=== PATIENT | female | born 1990 | race Caucasian/White ===

== ENCOUNTER 2021-06-24 16:22 | Emergency (ER) | payer BC, OTHER ==
[2021-06-24] MEDS ORDERED: Sodium Chloride 0.9% 10 ML Syringe FLUSH PRN (16:39)
[2021-06-24 16:45] VITALS: BP 156/101; PULSE 95
--- NOTE | 2021-06-24 17:00 | EDM.PDOC ---
ED HPI GENERAL MEDICAL PROBLEM - General Chief Complaint: BEAD STRINGER Problem Stated Complaint: POSS MISCARRIAGE Time Seen by Provider: 06/24/21 16:38 Source of Information: Reports: Patient, RN Notes Reviewed History Limitations: Reports: No Limitations - History of Present Illness INITIAL COMMENTS - FREE TEXT/NARRATIVE: Patient is a 30-year-old female who presents to the ER for evaluation of her vaginal bleeding in . States she is a G2, P1, and she is about 7 weeks . Patient noticed this morning that she had some light vaginal spotting, and this has increased to red vaginal bleeding with a small clot-like material. States that she does not think it would have been enough to fill a maxi pad, but possibly a panty liner. States she is not dizzy or lightheaded or anything, she is not having any sort of abdominal cramping. Patient states she is getting anxious thinking about the possibilities of this, so she came to the ER for evaluation. Her BEAD STRINGER does reside in [place]. Patient denies any other sick-like symptoms, fever/chills, cough/shortness of breath, nausea/vomiting/diarrhea. Denying any urinary issues. - Related Data Allergies Allergy/AdvReac Type Severity Reaction Status Date / Time Penicillins Allergy Rash Verified 06/24/21 16:45 Home Meds: Home Meds Doxepin HCl [Doxepin] 10 mg PO BEDTIME 09/03/19 [History] FLUoxetine [PROzac] 10 mg PO DAILY 09/03/19 [History] No122/Iron/Folic Acid [ Multi Tablet] 1 each PO BEDTIME 09/03/19 [History] Past Medical History HEENT History: Reports: Impaired Vision Cardiovascular History: Reports: None Respiratory History: Reports: None Gastrointestinal History: Reports: GERD BEAD STRINGER History: Reports: Musculoskeletal History: Reports: Other (See Below) Other Musculoskeletal History: right acl reconstruction Neurological History: Reports: None Psychiatric History: Reports: Anxiety, Depression, Panic Attack Endocrine/Metabolic History: Reports: Obesity/BMI 30+ Oncologic (Cancer) History: Reports: Other (See Below) - Past Surgical History HEENT Surgical History: Reports: Adenoidectomy, LASIK, Oral Surgery, Tonsillectomy GI Surgical History: Reports: Appendectomy Musculoskeletal Surgical History: Reports: Arthroscopic Knee, Carpal Tunnel Social & Family History - Tobacco Use Tobacco Use Status *Q: Never Tobacco User - Caffeine Use Caffeine Use: Reports: None - Recreational Drug Use Recreational Drug Use: No ED ROS GENERAL - Review of Systems Review Of Systems: Comprehensive ROS is negative, except as noted in HPI. ED EXAM - Physical Exam Exam: See Below Exam Limited By: No Limitations General Appearance: Alert, WD/WN, No Apparent Distress Respiratory/Chest: No Respiratory Distress, Lungs Clear, Normal Breath Sounds, No Accessory Muscle Use, Chest Non-Tender Cardiovascular: Normal Peripheral Pulses, Regular Rate, Rhythm, No Edema GI/Abdominal Exam: Normal Bowel Sounds, Soft, No Distention, No Mass, Tender (low pelvic/ suprapic mild discomfort) Heart Tones: Not [place] Movement: Not Appreciated Extremities: Normal Inspection, Normal Capillary Refill Neurological: Alert, Oriented, Normal Cognition, No Motor/Sensory Deficits Psychiatric: Normal Affect, Normal Mood Skin Exam: Warm, Dry, Intact, Normal Color, No Rash Course - Vital Signs Last Recorded V/S: Last Vital Signs Temp 97.2 F 06/24/21 16:42 Pulse 95 06/24/21 16:42 Resp 16 06/24/21 16:42 BP 156/101 H 06/24/21 16:42 Pulse Ox 97 06/24/21 16:42 - Orders/Labs/Meds Orders: Active Orders 24 hr Category Date Time Status Peripheral IV Care [RC] . DIRECTED Care 06/24/21 16:39 Ordered OB Transvaginal [US] Stat Exams 06/24/21 16:39 Ordered PATIENT RETYPE [BBK] Routine Lab 06/24/21 16:54 Received Sodium Chloride 0.9% [Saline Flush] Med 06/24/21 16:39 Ordered 10 ml FLUSH ASDIRECTED PRN Peripheral IV Insertion Adult [OM.PC] Stat Oth 06/24/21 16:39 Ordered Medication Orders Sodium Chloride (Sodium Chloride 0.9% 10 Ml Syringe) 10 ml FLUSH ASDIRECTED PRN PRN Reason: Keep Vein Open Labs: Laboratory Tests 06/24/21 06/24/21 06/24/21 Range/Units 16:57 16:57 16:57 WBC 7.98 (3.98-10.04) K/mm3 RBC 4.26 (3.98-5.22) M/mm3 Hgb 13.0 (11.2-15.7) gm/dl Hct 39.7 (34.1-44.9) % MCV 93.2 (79.4-94.8) fl MCH 30.5 (25.6-32.2) pg MCHC 32.7 (32.2-35.5) g/dl RDW Std Deviation 43.7 (36.4-46.3) fL Plt Count 270 (182-369) K/mm3 MPV 9.7 (9.4-12.3) fl Neut % (Auto) 58.3 (34.0-71.1) % Lymph % (Auto) 29.3 (19.3-51.7) % [place] % (Auto) 10.3 (4.7-12.5) % Eos % (Auto) 1.5 (0.7-5.8) Baso % (Auto) 0.3 (0.1-1.2) % Neut # (Auto) 4.66 (1.56-6.13) K/mm3 Lymph # (Auto) 2.34 (1.18-3.74) K/mm3 [place] # (Auto) 0.82 H (0.24-0.36) K/mm3 Eos # (Auto) 0.12 (0.04-0.36) K/mm3 Baso # (Auto) 0.02 (0.01-0.08) K/mm3 HCG, Quant 1578.0 mIU/mL Blood Type O POSITIVE Meds: Medications Generic Name Dose Route Start Last Admin Trade Name Freq PRN Reason Stop Dose Admin Sodium Chloride 10 ml 06/24/21 16:39 Sodium Chloride 0.9% 10 Ml Syringe FLUSH ASDIRECTED PRN Keep Vein Open - Re-Assessments/Exams Free Text/Narrative Re-Assessment/Exam: 06/24/21 16:59 Patient presents to the ER for the evaluation of her early and vaginal bleeding, we will go ahead and get a transvaginal ultrasound, get some basic labs. 06/24/21 18:32 Hemoglobin is within normal limits, hCG quantitative level is 1578, ultrasound did demonstrate a candidate for gestational sac but no yolk sac or pole was identified at this time. This may be secondary to early however pseudogestational sac, abnormal or ectopic cannot be completely excluded at this time, close interval follow-up imaging is recommended. There is a simple appearing cystic structure within the right ovary and a small amount of free fluid within the pelvis that could be blood. Patient is going to follow-up with her BEAD STRINGER tomorrow for ongoing management, a copy of her ultrasound results through [facility] was given to the patient for ongoing management. Departure - Departure Time of Disposition: 18:33 Disposition: Home, Self-Care 01 Condition: Good Clinical Impression: Vaginal bleeding affecting early - Discharge Information *PRESCRIPTION DRUG MONITORING PROGRAM REVIEWED*: No *COPY OF PRESCRIPTION DRUG MONITORING REPORT IN PATIENT SUKHJINDER: No Instructions: Vaginal Bleeding During , First Trimester, [id number] Referrals: Alma Macdonald MD [Primary Care Provider] - Forms: ED Department Discharge Additional Instructions: You were evaluated in the ER today regarding your abdominal pain/vaginal bleeding in . You did have some labs drawn, and these were within normal limits, your hCG level was 1578, your blood type is O+. Your ultrasound demonstrated a possible gestational sac but no definite pole or yolk sac was identified. The gestational sac was measured at around 5 weeks 2 days gestation. This very well could be a very early finding versus other abnormalities. Close interval follow-up is recommended per radiology. The other portions of the ultrasound were reviewed, and are not found to be of concern at tonight's visit. Recommend that you do not lift anything heavier than a gallon of milk (5 lbs), do not engage in sexual activities, try to get as much pelvic rest as possible for the next few days. Please try not to exert yourself, rest and relax, and take it easy. If you are bleeding through more than 1-2 maxi pads every couple hours, this would be cause for concern to return to the ER for immediate management. Please follow up with your BEAD STRINGER tomorrow for ongoing reevaluation, for blood test/ultrasound imaging as directed by their discretion. Please return to the ED at any time if your symptoms change or worsen. Sepsis Event Note (ED) - Evaluation Sepsis Screening Result: No Definite Risk - Focused Exam Vital Signs: Vital Signs Temp Pulse Resp BP Pulse Ox 06/24/21 16:42 97.2 F 95 16 156/101 H 97 - My Orders Last 24 Hours: My Active Orders 06/24/21 16:39 Peripheral IV Care [RC] . DIRECTED OB Transvaginal [US] Stat Sodium Chloride 0.9% [Saline Flush] 10 ml FLUSH ASDIRECTED PRN Peripheral IV Insertion Adult [OM.PC] Stat 06/24/21 16:54 PATIENT RETYPE [BBK] Routine - Assessment/Plan Last 24 Hours: My Active Orders 06/24/21 16:39 Peripheral IV Care [RC] . DIRECTED OB Transvaginal [US] Stat Sodium Chloride 0.9% [Saline Flush] 10 ml FLUSH ASDIRECTED PRN Peripheral IV Insertion Adult [OM.PC] Stat 06/24/21 16:54 PATIENT RETYPE [BBK] Routine
--- NOTE | 2021-06-25 07:58 | US ---
First trimester obstetrical ultrasound: Multiple real-time images were obtained transvaginally. Comparison: No previous obstetrical ultrasound is available. Small cystic area is seen within the endometrial cavity. This has a mean sac diameter of 5 mm which correlates to 5 weeks 2 days. This is too early to confirm normal yolk sac or pole. Minimal free fluid is seen within the cul-de-sac. Maternal ovaries appear within normal limits. Impression: 1. Small sac within the endometrial cavity. Difficult to exclude very early . This could also represent a pseudo-gestational sac. Recommend follow-up study in 2 weeks to confirm normal . 2. Minimal free fluid within the pelvis which is believed to be physiologic. 3. No acute abnormality is appreciated. Diagnostic code #2 I agree with preliminary report from [facility], finalized on 06/24/21, 7:24 PM CDT, code 1
== END 2021-06-24 18:47 | disposition home or self-care (01) ==
LOC: JD.ED 16:22
DX: O20.9 Hemorrhage in early pregnancy, unspecified (principal); Z88.0 Allergy status to penicillin; Z3A.01 Less than 8 weeks gestation of pregnancy
CPT/HCPCS: 36415; 76817; 76817-26; 84702; 85025; 86900; 86901; 99284-25

== ENCOUNTER 2023-03-15 13:21 | Emergency (ER) | payer BC, OTHER ==
[2023-03-15 16:12] VITALS: BP 131/91; PULSE 68
== END 2023-03-15 16:10 | disposition home or self-care (01) ==
LOC: JD.ED 13:21
DX: S16.1XXA Strain of muscle, fascia and tendon at neck level, initial encounter (principal); S30.0XXA Contusion of lower back and pelvis, initial encounter; E66.9 Obesity, unspecified; Z68.33 Body mass index [BMI] 33.0-33.9, adult; Z88.0 Allergy status to penicillin; V80.010A Animal-rider injured by fall from or being thrown from horse in noncollision accident, initial encounter; Y93.52 Activity, horseback riding
CPT/HCPCS: 70450; 70450-26; 71045; 71045-26; 72125; 72125-26; 99283; 99284

== ENCOUNTER 2024-10-05 01:03 | Emergency (ER) | payer BC ==
[2024-10-05 01:39] LABS: BASOPHILS PERCENT AUTO 0.5 % (0.0-1.0); EOSINOPHILS ABSOLUTE AUTO 0.2 K/mm3 (0.0-0.4); EOSINOPHILS PERCENT AUTO 2.4 % (0.0-6.0); HEMOGLOBIN 13.9 gm/dl (12.0-16.0); IMMATURE GRAN ABSOLUTE AUTO 0.02 K/mm3 (0.00-0.05); IMMATURE GRAN PERCENT AUTO 0.3 % (0.0-0.4); LYMPHOCYTES PERCENT AUTO 24.9 % (24.0-44.0); MEAN CORPUSCULAR HEMOGLOBIN 31.4 pg (28.0-32.0); MEAN CORPUSCULAR HGB CONC 33.1 g/dl (32.0-36.0); MEAN CORPUSCULAR VOLUME 94.8 fl (83.0-99.0); MEAN PLATELET VOLUME 9.8 fl (9.4-12.3); MONOCYTES ABSOLUTE AUTO 0.6 K/mm3 (0.0-0.8); MONOCYTES PERCENT AUTO 7.1 % (0.0-8.0); NEUTROPHILS ABSOLUTE AUTO 5.1 K/mm3 (1.8-7.7); NEUTROPHILS PERCENT AUTO 64.8 % (41.0-71.0); PLATELET COUNT,PLT 264 K/mm3 (150-400); RED BLOOD CELL COUNT 4.43 M/mm3 (4.10-5.30); WHITE BLOOD CELL COUNT,WBC 7.84 K/mm3 (3.9-11.3)
[2024-10-05] MEDS: diphenhydrAMINE 50 MG/ML SDV IVPUSH ONE (01:42)
[2024-10-05] MEDS: Ketorolac 30 MG/ML SDV IVPUSH ONE (01:42)
[2024-10-05] MEDS: Ondansetron 4 MG/2 ML SDV IVPUSH ONE (01:42)
[2024-10-05] MEDS: Sodium Chloride 0.9% 1,000 ML IV ONE (01:43)
[2024-10-05 01:59] LABS: A/G RATIO 1.1 (1-2); ALBUMIN 4.2 g/dl (3.4-5.0); ANION GAP 14.3 (5-15); BILIRUBIN TOTAL 0.3 mg/dL (0.2-1.0); BUN/CREATININE RATIO 13.8 (14-18); CREATININE 1.3 mg/dL (0.55-1.02); EST CRCL DRUG DOSING (CG) 55.39 mL/min; MAGNESIUM 1.8 mg/dL (1.8-2.4); POTASSIUM,K 4.3 mEq/L (3.5-5.1); PROTEIN TOTAL,TP 7.9 g/dl (6.4-8.2); TSH 2.841 uIU/mL (0.358-3.74)
[2024-10-05 02:55] VITALS: BP 122/68; PULSE 76
== END 2024-10-05 02:54 | disposition home or self-care (01) ==
LOC: JD.ED 01:03
DX: R51.9 Headache, unspecified (principal); Z88.0 Allergy status to penicillin; Z79.899 Other long term (current) drug therapy
CPT/HCPCS: 36415; 80053; 83735; 84443; 84703; 85025; 96361; 96374; 96375; 99283; J1200; J1885; J2405; J7030